=== PATIENT | female | born 1980 | race Caucasian/White ===

== ENCOUNTER 2021-11-30 22:13 | Emergency (ER) | payer SELFPAY ==
[2021-11-30] MEDS ORDERED: Morphine 4 MG/ML VIAL ONE (23:28)
== END 2021-11-30 23:38 | disposition home or self-care (01) ==
LOC: CSHERS 22:13
DX: S86.811A Strain of other muscle(s) and tendon(s) at lower leg level, right leg, initial encounter (principal); F17.210 Nicotine dependence, cigarettes, uncomplicated; X50.9XXA Other and unspecified overexertion or strenuous movements or postures, initial encounter
CPT/HCPCS: 96372; J2270

== ENCOUNTER 2022-01-15 03:42 | Emergency (ER) | payer SELFPAY ==
[2022-01-15] MEDS ORDERED: Ondansetron PF 4 MG/2 ML Vial ONE (04:13)
[2022-01-15] MEDS ORDERED: Acetaminophen 500 MG TAB ONE (04:13)
[2022-01-15] MEDS ORDERED: Dicyclomine 20 MG TAB ONE (04:14)
[2022-01-15 04:26] LABS: ALT (SGPT) 24 U/L (8-55); AST (SGOT) 25 U/L (5-34); Alkaline Phosphatase 59 U/L (40-110); Anion Gap 13 mmol/L (10-20); BUN (Urea Nitrogen) 5 mg/dL (7.0-18.7); Bilirubin, Total 0.1 mg/dL (0.2-1.2); Calc. Creatinine Clearance 0 mL/min (70-130); Calcium 8.1 mg/dL (7.8-10.44); Carbon Dioxide 18 mmol/L (22-29); Chloride 112 mmol/L (98-107); Estimated GFR 115; Glucose 89 mg/dL (70-105); Lipase 19 U/L (8-78); Potassium 3.7 mmol/L (3.5-5.1); Sodium 139 mmol/L (136-145)
[2022-01-15 04:31] LABS: #Basophils 0.1 10x3/uL (0.0-0.2); #Eosinphils 0.2 10x3/uL (0.0-0.5); #Monocytes 0.8 10x3/uL (0.0-1.1); #Neutrophils 4.7 10x3/uL (1.5-8.4); %Basophils 1.2 % (0.0-2.0); %Eosinophils 2.5 % (0.0-6.0); %Lymphocytes 31.7 % (18.0-47.0); %Monocytes 9.1 % (0.0-10.0); %Neutrophils 54.9 % (40.0-75.0); Hemoglobin 14.3 g/dL (12.0-15.5); Mean Corpuscular HGB CONC 35.2 g/dL (32.0-36.0); Mean Corpuscular Hemoglobin 32.6 pg (27.0-33.0); Mean Corpuscular Volume 92.7 fl (81.6-98.3); Mean Platelet Volume 9.8 fl (7.4-10.4); Platelet Count 328 10x3/uL (150-450); RBC Distribution Width 13.9 % (11.5-14.5); Red Blood Cell (RBC) Count 4.38 10x6/uL (3.90-5.03); White Blood Cell (WBC) Count 8.6 10x3/uL (3.5-10.5)
[2022-01-15 04:38] LABS: Bilirubin Neg (Negative); Blood, Urine Negative (Negative); Clarity Clear (Clear); Glucose, Urine (Dipstick) Normal (Negative); Ketone, Urine Negative (Negative); Leukocyte Negative (Negative); Nitrite Negative (Negative); Protein, Urine (Dipstick) Negative (Neg-Trace); Specific Gravity, Urine 1.005 (1.002-1.036); Urobilinogen Normal mg/dL (Less than 2)
[2022-01-15 04:41] LABS: Pregnancy Test - Urine (BHCG) Negative (Negative); Pregu Control Background? CLEAR/WHITE (CLR/WHITE); Pregu Control Bar Appear? YES (CONTROL BAR); Specific Gravity 1.005 (1.002-1.036)
[2022-01-15] MEDS ORDERED: Iopamidol 300 61% 100 ML VIAL FS ONE (10:09)
== END 2022-01-15 05:12 | disposition home or self-care (01) ==
LOC: CSHERS 03:42
DX: K86.1 Other chronic pancreatitis (principal); S39.012A Strain of muscle, fascia and tendon of lower back, initial encounter; F17.210 Nicotine dependence, cigarettes, uncomplicated
CPT/HCPCS: 74177; 80053; 81003; 81025; 83690; 85025; 87086; 96361; 96374; J2405; Q9967